=== PATIENT | female | born 1950 | race Two or more races ===

== ENCOUNTER 2019-10-12 10:35 | Outpatient (CLI) | payer OTHER ==
[~2019-10-12 10:35] MED LIST: ACETAMINOOPHEN-1 TAB PO; CATAFLAM50 MG PO; CIPRO750 MG PO; CIPROFLOXACIN750 MG PO; CLONAZEPAM1 MG PO; DOCUSATE SODIU100 MG PO; GABAPENTIN800 MG PO; GLYCOTROL CAPS1 EACH PO; METHYLPRED4 MG/DOSE- PO; NEURONTIN PO; NEURONTIN300 MG PO; PERCOCET 5/3251 TAB PO; THERALITH XR T1 EACH PO; ULTRACET PO; VIT C-BIOFLAVO1 EACH PO; ZOCOR5 MG PO; [UNRECOGNIZED DRUG - OTHER] PO
== END 2019-10-12 11:00 | disposition home or self-care (01) ==
LOC: OFIC 805 10:35
PROVIDERS: ATTEND Otolaryngology Otology & Neurotology
DX: H92.11 Otorrhea, right ear (principal); H91.8X1 Other specified hearing loss, right ear; H72.92 Unspecified perforation of tympanic membrane, left ear

== ENCOUNTER 2019-11-09 10:51 | Outpatient (CLI) | payer OTHER ==
[2019-11-18] MEDS ORDERED: LIPITOR20 MG PO (09:58)
[2019-11-18] MEDS ORDERED: CATAFLAN PO (09:59)
== END 2019-11-09 17:55 | disposition home or self-care (01) ==
LOC: OFIC 805 10:51
PROVIDERS: ATTEND Otolaryngology Otology & Neurotology
DX: H72.92 Unspecified perforation of tympanic membrane, left ear (principal); H91.8X2 Other specified hearing loss, left ear

== ENCOUNTER 2019-11-25 05:50 | Day surgery (SDC) | payer OTHER ==
[~2019-11-25 05:50] MED LIST changes: +CATAFLAN PO; +LIPITOR20 MG PO
[2019-11-25] MEDS ORDERED: KEFLEX500 MG PO (10:38)
[2019-11-25] MEDS ORDERED: ZOFRAN8 MG PO (10:40)
[2019-11-25] MEDS ORDERED: CILOXAN5 ML OP (10:40)
== END 2019-11-25 12:40 | disposition home or self-care (01) ==
LOC: CIR.AMB 05:50
PROVIDERS: ATTEND Otolaryngology Otology & Neurotology
DX: H90.12 Conductive hearing loss, unilateral, left ear, with unrestricted hearing on the contralateral side (principal); H72.02 Central perforation of tympanic membrane, left ear; H93.12 Tinnitus, left ear; Z20.818 Contact with and (suspected) exposure to other bacterial communicable diseases

== ENCOUNTER 2019-12-09 10:00 | Outpatient (CLI) | payer OTHER ==
[~2019-12-09 10:00] MED LIST changes: +CILOXAN5 ML OP; +KEFLEX500 MG PO; +ZOFRAN8 MG PO
== END 2019-12-09 11:00 | disposition home or self-care (01) ==
LOC: OFIC 805 10:00
PROVIDERS: ATTEND Otolaryngology Otology & Neurotology
DX: H91.8X2 Other specified hearing loss, left ear (principal); H72.92 Unspecified perforation of tympanic membrane, left ear

== ENCOUNTER 2019-12-28 13:42 | Outpatient (CLI) | payer OTHER | END 2019-12-28 14:00 | disposition home or self-care (01) | LOC: OFIC 805 13:42 | PROVIDERS: ATTEND Otolaryngology Otology & Neurotology | DX: H90.12 Conductive hearing loss, unilateral, left ear, with unrestricted hearing on the contralateral side (principal); H93.12 Tinnitus, left ear; H72.92 Unspecified perforation of tympanic membrane, left ear; H91.92 Unspecified hearing loss, left ear ==

== ENCOUNTER → 2020-01-27 | Outpatient (CLI) | payer OTHER | END | disposition home or self-care (01) | LOC: OFIC 805 13:30 | PROVIDERS: ATTEND Otolaryngology Otology & Neurotology | DX: H93.12 Tinnitus, left ear (principal); H90.12 Conductive hearing loss, unilateral, left ear, with unrestricted hearing on the contralateral side; H72.92 Unspecified perforation of tympanic membrane, left ear ==

== ENCOUNTER 2020-03-26 14:40 | Outpatient (CLI) | payer OTHER | END 2020-03-26 15:20 | disposition home or self-care (01) | LOC: OFIC 805 14:40 | PROVIDERS: ATTEND Otolaryngology Otology & Neurotology | DX: H93.12 Tinnitus, left ear (principal); H90.12 Conductive hearing loss, unilateral, left ear, with unrestricted hearing on the contralateral side ==